=== PATIENT | female | born 1975 | race Caucasian/White ===

== ENCOUNTER 2016-12-17 19:57 | Emergency (ER) | payer OTHER ==
[2016-12-17 21:27] LABS: BASOPHIL 0.2 % (0-2); EOSINOPHIL 4.6 % (0-5); HCT 40.8 % (37.0-47.0); HGB 13.9 g/dl (12.5-16.0); LYMPHOCYTE 24.4 % (15-48); MCH 30.9 pg (25.0-31.0); MCHC 34.1 g/dL (32.0-36.0); MCV 90.7 fL (78.0-100.0); MONOCYTE 6.7 % (0-12); MPV 10.2 fL (6.0-9.5); NEUTROPHIL 64.1 % (41-80); PLT 297 K/uL (150-400); RDW 12.9 % (11.5-14.0); WBC 10.6 K/uL (4.0-10.5)
[2016-12-17 21:36] LABS: INR 0.97 (0.9-1.2); PROTHROMBIN TIME 12.5 SECONDS (11.7-14.0)
[2016-12-17 21:48] LABS: MYOGLOBIN 21 ng/mL (26-65); PRO-BNP 17 pg/mL (0-125); TROPONIN T < 0.010 ng/mL
[2016-12-17 21:52] LABS: ALBUMIN 4.1 g/dL (3.5-5.0); BILIRUBIN - TOTAL 0.2 mg/dL (0.1-1.0); CREATININE 0.8 mg/dL (0.5-1.0); GLOBULIN (CALCULATION) 2.6 g/dL (2.2-4.2); MAGNESIUM 1.54 mg/dL (1.40-2.10); POTASSIUM 4.3 mmol/L (3.5-5.1); TOTAL PROTEIN 6.7 g/dL (6.4-8.3)
== END 2016-12-17 23:28 | disposition home or self-care (01) ==
LOC: FER 19:57
PROVIDERS: Internal Medicine
DX: M54.12 Radiculopathy, cervical region (principal); E11.9 Type 2 diabetes mellitus without complications; I10 Essential (primary) hypertension; Z79.84 Long term (current) use of oral hypoglycemic drugs; Z79.899 Other long term (current) drug therapy
CPT/HCPCS: 36415; 71010; 72050; 80048; 80053; 80162; 82550; 82553; 83735; 83874; 83880; 84484; 85025; 85610; 85730; 93005

== ENCOUNTER 2017-01-03 21:46 | Emergency (ER) | payer OTHER | END 2017-01-03 23:12 | disposition home or self-care (01) | LOC: FER 21:46 | DX: S39.012A Strain of muscle, fascia and tendon of lower back, initial encounter (principal); R51 Headache; I11.0 Hypertensive heart disease with heart failure; I50.9 Heart failure, unspecified; E11.9 Type 2 diabetes mellitus without complications; Z79.84 Long term (current) use of oral hypoglycemic drugs; Z79.899 Other long term (current) drug therapy; V80.010A Animal-rider injured by fall from or being thrown from horse in noncollision accident, initial encounter | CPT/HCPCS: J1100 ==

== ENCOUNTER 2021-06-01 18:37 | Emergency (ER) | payer OTHER ==
[~2021-06-01 18:37] MED LIST: ALOGLIPTIN25 MG PO; ALOGLIPTIN6.25 MG PO; BACTRIM DS TAB1 EACH PO; CLINDAMYCIN 15150 MG PO; CYMBALTA 30MG C30 MG PO; DIGITEK125 MCG PO; DIGOXIN125 MCG PO; DULOXETINE HCL30 MG PO; FIORICET1 EACH PO; IBUPROFEN800 MG PO; JANUVIA 100MG100 MG PO; JANUVIA50 MG PO; KEFLEX500 MG PO; LIPITOR 10MG TA10 MG PO; LISINOPRIL 20MG20 MG PO; LOPRESSOR25 MG PO; METOPROLOL SUCC25 MG PO; NITROQUIK SL0.4 MG SL; NORCO 5-325 TA1 EACH PO; PRINIVIL20 MG PO; QUETIAPINE FUM100 MG PO; SEROQUEL 100MG100 MG PO; ZOFRAN4 MG PO
[2021-06-01] MEDS ORDERED: ROBAXIN750 MG PO (22:50)
[2021-06-01] MEDS ORDERED: NORCO 5-325 TA1 EACH PO (22:50)
== END 2021-06-02 00:29 | disposition home or self-care (01) ==
LOC: FER 18:37
DX: S50.01XA Contusion of right elbow, initial encounter (principal); S70.01XA Contusion of right hip, initial encounter; I10 Essential (primary) hypertension; E11.9 Type 2 diabetes mellitus without complications; M79.18 Myalgia, other site; Z88.8 Allergy status to other drugs, medicaments and biological substances; W01.0XXA Fall on same level from slipping, tripping and stumbling without subsequent striking against object, initial encounter
CPT/HCPCS: 72100; 73080; 73502

== ENCOUNTER 2022-06-01 18:04 | Emergency (ER) | payer OTHER ==
[~2022-06-01 18:04] MED LIST changes: +ROBAXIN750 MG PO
[2022-06-01 20:22] LABS: BASOPHIL 0.2 % (0-2); EOSINOPHIL 0.3 % (0-5); HCT 40.3 % (37.0-47.0); HGB 13.5 g/dl (12.5-16.0); LYMPHOCYTE 3.1 % (15-48); MCH 29.9 pg (25.0-31.0); MCHC 33.5 g/dL (32.0-36.0); MCV 89.4 fL (78.0-100.0); MPV 11.1 fL (6.0-9.5); NRBC 0; PLT 397 K/uL (150-400); RBC 4.51 M/uL (4.20-5.40); RDW 12.9 % (11.5-14.0)
[2022-06-01 20:38] LABS: BUN/CREAT RATIO (CALC) 18.7 RATIO; CREATININE 1.07 mg/dL (0.51-0.95); POTASSIUM 2.9 mmol/L (3.5-5.1)
[2022-06-01 20:39] LABS: WBC 30.3 K/uL (4.0-10.5)
[2022-06-01 20:40] LABS: NEUTROPHIL 91.2 % (41-80)
[2022-06-01 21:31] LABS: LACTIC ACID 3.3 mmol/L (0.4-1.9)
[2022-06-02 00:51] LABS: CREATININE 0.95 mg/dL (0.51-0.95); POTASSIUM 2.8 mmol/L (3.5-5.1)
== END 2022-06-02 01:32 | disposition other institution (70) ==
LOC: FER 18:04
PROVIDERS: Internal Medicine; Nurse Practitioner Family
DX: E11.52 Type 2 diabetes mellitus with diabetic peripheral angiopathy with gangrene (principal); A48.0 Gas gangrene; I10 Essential (primary) hypertension; Z79.4 Long term (current) use of insulin; Z79.84 Long term (current) use of oral hypoglycemic drugs; Z79.899 Other long term (current) drug therapy
CPT/HCPCS: 36415; 36600; 73630; 73700; 80048; 82009; 82803; 83605; 85025; 87040; J0692; J3370; J3475; J3480; J7030; J7050

== ENCOUNTER 2022-06-19 08:48 | Emergency (ER) | payer OTHER ==
[2022-06-19 10:52] LABS: BASOPHIL 0.9 % (0-2); EOSINOPHIL 2.2 % (0-5); HCT 33.2 % (37.0-47.0); HGB 10.6 g/dl (12.5-16.0); LYMPHOCYTE 21.9 % (15-48); MCH 29.4 pg (25.0-31.0); MCHC 31.9 g/dL (32.0-36.0); MCV 92.2 fL (78.0-100.0); MONOCYTE 6.7 % (0-12); MPV 10.3 fL (6.0-9.5); NRBC 0; PLT 542 K/uL (150-400); RDW 14.5 % (11.5-14.0); WBC 10.3 K/uL (4.0-10.5)
[2022-06-19 11:05] LABS: BUN/CREAT RATIO (CALC) 19.2 RATIO; CREATININE 0.78 mg/dL (0.51-0.95); POTASSIUM 4.4 mmol/L (3.5-5.1)
[2022-06-19 11:13] LABS: LACTIC ACID 1.9 mmol/L (0.4-1.9)
== END 2022-06-19 15:25 | disposition other institution (70) ==
LOC: FER 08:48
PROVIDERS: Emergency Medicine
DX: L76.22 Postprocedural hemorrhage of skin and subcutaneous tissue following other procedure (principal); E11.9 Type 2 diabetes mellitus without complications; Z79.84 Long term (current) use of oral hypoglycemic drugs
CPT/HCPCS: 36415; 71045; 73700; 80048; 83605; 85025; 87040; J2270; J2405; J3370; J7050